=== PATIENT | male | born 1945 | race Caucasian/White ===

== ENCOUNTER 2021-06-12 13:55 | Emergency (ER) | payer OTHER ==
[~2021-06-12] VITALS: Ht 162.6 cm; Wt 58.1 kg
--- NOTE | 2021-06-12 14:09 | NUR ---
Patient triaged and placed in the hallway with EMS. VSS and patient appears in no acute distress at this time. Accompanied by EMS , awaiting available bed, and MD notified of need for MSE.
--- NOTE | 2021-06-12 14:10 | NUR ---
Pt brought by ambulance, A&O to pain, pt presents to ER for G-tube replacement, pt removed G- tube this am, pt VSS, pt has a trach to T-bonedue to Hx of CVA and hemiplagia, afebrile, will cont to monitor.
[2021-06-12 14:11] VITALS: BP_SYST 120
--- NOTE | 2021-06-12 14:20 | NUR ---
Dr Reyes evaluating patient at bedside
[2021-06-12] MEDS ORDERED: GASTROGRAFIN 120 ML ONE (14:46)
--- NOTE | 2021-06-12 15:02 | NUR ---
PT TAKEN TO XRAY VIA MAINE
--- NOTE | 2021-06-12 17:49 | NUR ---
NO ACUTE CHANGES IN CONDITION, VSS. SAFETY MEASURES IN PLACE.
--- NOTE | 2021-06-12 18:57 | NUR ---
[facility] FOR TRANSPORT.
--- NOTE | 2021-06-12 19:43 | NUR ---
called [facility]. spoke SHARAN Velazquez given report.
[2021-06-12 19:44] VITALS: BP_SYST 116
--- NOTE | 2021-06-12 19:44 | NUR ---
Patient and bls transport given given written and verbal discharge instructions and verbalizes understanding. ER MD discussed with patient the results and treatment provided. Patient in stable condition. ID arm band removed. NO rx. Patient educated on pain management and to follow up with PMD. Pain Scale 0/10 Opportunity for questions provided and answered. Medication side effect fact sheet provided.
== END 2021-06-12 19:44 | disposition home or self-care (01) ==
LOC: SED 13:55
DX: K94.23 Gastrostomy malfunction (principal); I10 Essential (primary) hypertension
CPT/HCPCS: 43762; 74240; 99284; Q9963